=== PATIENT | female | born 1950 | race Caucasian/White ===

== ENCOUNTER 2021-10-26 13:42 | Inpatient (IN) | payer MEDICARE ==
[~2021-10-26] VITALS: Ht 149.9 cm; Wt 44.5 kg
[2021-10-26 15:02] LABS: BASOPHIL 0.2 % (0-2); EOSINOPHIL 0 % (0-7); HCT 39.1 % (37.0-47.0); HGB 13.6 g/dl (12.5-16.0); LYMPHOCYTE 21.1 % (15-48); MCH 30.8 pg (25.0-31.0); MCHC 34.8 g/dL (32.0-36.0); MCV 88.7 fL (78.0-100.0); MONOCYTE 15.6 % (0-12); MPV 9.8 fL (6.0-9.5); NEUTROPHIL 62.5 % (41-80); NRBC 0; PLT 284 K/uL (150-400); RBC 4.41 M/uL (4.20-5.40); RDW 12.2 % (11.5-14.0); WBC 6.5 K/uL (4.0-10.5)
[2021-10-26 15:24] LABS: PROTHROMBIN TIME 12.6 SECONDS (11.8-13.4); PTT 24.9 SECONDS (24.4-34.7)
[2021-10-26 15:31] LABS: IRON % SATURATION 31.8 %SAT (20-50)
[2021-10-26 15:52] LABS: INFLUENZA A NAA NEGATIVE (NEGATIVE)
[2021-10-26 15:54] LABS: ALBUMIN 3.4 g/dL (3.4-5.0); ALKALINE PHOSHATASE 88 U/L (46-116); ALT 25 U/L (14-59); AST 33 U/L (15-37); BILIRUBIN - TOTAL 0.3 mg/dL (0.2-1.0); BUN 10 mg/dL (7-18); BUN/CREAT RATIO (CALC) 16.1 RATIO; CHLORIDE 91 mmol/L (98-107); CO2 (BICARBONATE) 22 mmol/L (21-32); CREATININE 0.62 mg/dL (0.51-0.95); GLOBULIN (CALCULATION) 3.7 g/dL; GLUCOSE 169 mg/dL (74-106); LIPASE 79 U/L (73-393); MAGNESIUM 1.2 mg/dL (1.8-2.4); POTASSIUM 2.6 mmol/L (3.5-5.1); TOTAL PROTEIN 7.1 g/dL (6.4-8.2)
[2021-10-26 16:04] LABS: CORONAVIRUS 2019 SARS-COV-2 POSITIVE (NEGATIVE)
[2021-10-26 16:11] LABS: C-REACTIVE PROTEIN < 0.20 mg/dL (<=0.90)
[2021-10-26 16:12] LABS: LACTIC ACID 3.2 mmol/L (0.4-1.9)
[2021-10-26 21:56] LABS: BUN/CREAT RATIO (CALC) 17.5 RATIO; CREATININE 0.63 mg/dL (0.51-0.95); PHOSPHORUS 2.7 mg/dL (2.6-4.7); POTASSIUM 3.1 mmol/L (3.5-5.1)
[2021-10-27] MEDS ORDERED: EUTHYROX88 MCG PO (00:06)
[2021-10-27 06:06] LABS: BASOPHIL 0.1 % (0-2); EOSINOPHIL 0 % (0-7); HCT 36.7 % (37.0-47.0); HGB 12.4 g/dl (12.5-16.0); LYMPHOCYTE 31.5 % (15-48); MCH 30.2 pg (25.0-31.0); MCHC 33.8 g/dL (32.0-36.0); MCV 89.3 fL (78.0-100.0); MONOCYTE 15.9 % (0-12); MPV 9.8 fL (6.0-9.5); NEUTROPHIL 51.6 % (41-80); NRBC 0; PLT 274 K/uL (150-400); RBC 4.11 M/uL (4.20-5.40); RDW 12.3 % (11.5-14.0); WBC 8.6 K/uL (4.0-10.5)
[2021-10-27 06:19] LABS: BILIRUBIN NEGATIVE (NEGATIVE); BLOOD 1+ Ery/uL (NEGATIVE); CLARITY CLEAR (CLEAR); COLOR YELLOW (YELLOW); GLUCOSE (U) NORMAL (NORMAL); LEUKOCYTES NEGATIVE Leu/uL (NEGATIVE); NITRITE NEGATIVE (NEGATIVE); PROTEIN 2+ mg/dL (NEGATIVE); UROBILINOGEN 0.2 mg/dL (0.2-1.0)
[2021-10-27 06:36] LABS: BACTERIA TRACE
[2021-10-27 06:46] LABS: ALBUMIN 3.2 g/dL (3.4-5.0); BILIRUBIN - TOTAL 0.2 mg/dL (0.2-1.0); BUN/CREAT RATIO (CALC) 16.9 RATIO; CREATININE 0.65 mg/dL (0.51-0.95); GLOBULIN (CALCULATION) 2.4 g/dL; POTASSIUM 3.1 mmol/L (3.5-5.1); TOTAL PROTEIN 5.6 g/dL (6.4-8.2)
[2021-10-27 06:48] LABS: MAGNESIUM 2.3 mg/dL (1.8-2.4)
--- NOTE | 2021-10-27 07:14 | NUR ---
PT'S TELEMON DID NOT RECORD THE HOURLY VITALS. PT'S VITALS WERE RECORDED Q2HR'S WHILE ON CARDIZEM DRIP.
--- NOTE | 2021-10-27 15:49 | NUR ---
10/27 Ms. Becerril lives alone. She has a brother and sister who check in with her daily. Ms. Becerril reports to be independent in the home and community. She is able to meet her financial obligations. Yet, she is concerned about paying the hospital bill. Ms. Becerril was educated to the Respiratory Care Program Director.
[2021-10-28 06:25] LABS: BASOPHIL 0.1 % (0-2); EOSINOPHIL 0 % (0-7); HCT 37.3 % (37.0-47.0); HGB 12.6 g/dl (12.5-16.0); LYMPHOCYTE 23.7 % (15-48); MCH 30.2 pg (25.0-31.0); MCHC 33.8 g/dL (32.0-36.0); MCV 89.4 fL (78.0-100.0); MONOCYTE 8.4 % (0-12); MPV 9.9 fL (6.0-9.5); NEUTROPHIL 67.4 % (41-80); NRBC 0; PLT 245 K/uL (150-400); RBC 4.17 M/uL (4.20-5.40); RDW 12.2 % (11.5-14.0); WBC 6.9 K/uL (4.0-10.5)
[2021-10-28 08:05] LABS: BUN/CREAT RATIO (CALC) 27.9 RATIO; CREATININE 0.61 mg/dL (0.51-0.95); MAGNESIUM 1.8 mg/dL (1.8-2.4); POTASSIUM 3.3 mmol/L (3.5-5.1)
[2021-10-29 06:37] LABS: HCT 39.3 % (37.0-47.0); HGB 13.5 g/dl (12.5-16.0); MCH 30.5 pg (25.0-31.0); MCHC 34.4 g/dL (32.0-36.0); MCV 88.7 fL (78.0-100.0); MPV 9.7 fL (6.0-9.5); RBC 4.43 M/uL (4.20-5.40); RDW 12.1 % (11.5-14.0)
[2021-10-29 06:38] LABS: WBC 13.7 K/uL (4.0-10.5)
[2021-10-29 06:56] LABS: BUN/CREAT RATIO (CALC) 25.8 RATIO; CREATININE 0.62 mg/dL (0.51-0.95); MAGNESIUM 1.7 mg/dL (1.8-2.4); POTASSIUM 2.9 mmol/L (3.5-5.1)
[2021-10-30 06:33] LABS: BASOPHIL 0.4 % (0-2); EOSINOPHIL 0.1 % (0-7); HCT 45.9 % (37.0-47.0); HGB 15.6 g/dl (12.5-16.0); LYMPHOCYTE 26.4 % (15-48); MCH 30.2 pg (25.0-31.0); MONOCYTE 11.2 % (0-12); MPV 9.8 fL (6.0-9.5); NEUTROPHIL 60.5 % (41-80); NRBC 0; PLT 378 K/uL (150-400); RBC 5.16 M/uL (4.20-5.40); WBC 16.9 K/uL (4.0-10.5)
[2021-10-30 06:54] LABS: BUN/CREAT RATIO (CALC) 27.5 RATIO; CREATININE 0.8 mg/dL (0.51-0.95); MAGNESIUM 2.1 mg/dL (1.8-2.4)
[2021-10-30] MEDS ORDERED: ELIQUIS5 MG PO (09:33)
[2021-10-30] MEDS ORDERED: LOPRESSOR50 MG PO (09:33)
[2021-10-30] MEDS ORDERED: DIGITEK125 MCG PO (09:33)
[2021-10-30] MEDS ORDERED: ONDANSETRON ODT4 MG PO (12:30)
--- NOTE | 2021-10-30 13:11 | NUR ---
PATIENT DISCHARGED VIA WHEELCHAIR. MONITOR AND IV DCD. DISCHARGE INSTRUCTIONS EXPLAINED TO PATIENT AND FRIEND (PATIENT IS VERY HARD OF HEARING). FRIEND VERBALIZED UNDERSTANDING. ENCOURAGED TO GO TO PCP WITHIN THE NEXT WEEK FOR FOLLOWUP.
== END 2021-10-30 13:05 | disposition home or self-care (01) | DRG 178 ==
LOC: FER 13:42 → FTCU 20:57
PROVIDERS: Emergency Medicine; Nurse Practitioner; Nurse Practitioner Acute Care; ADMIT Family Medicine
PROC: XW033E5 Introduction of Remdesivir Anti-infective into Peripheral Vein, Percutaneous Approach, New Technology Group 5 (ICD-10-PCS; principal; 2021-10-26)
PROC: 8E0ZXY6 Isolation (ICD-10-PCS; 2021-10-26)
PROC: 3E0DX3Z Introduction of Anti-inflammatory into Mouth and Pharynx, External Approach (ICD-10-PCS; 2021-10-27)
DX: U07.1 COVID-19 (principal); E87.1 Hypo-osmolality and hyponatremia; E87.2 Acidosis; I48.91 Unspecified atrial fibrillation; E03.9 Hypothyroidism, unspecified; E87.6 Hypokalemia; E83.42 Hypomagnesemia; K52.9 Noninfective gastroenteritis and colitis, unspecified; F41.9 Anxiety disorder, unspecified; I11.0 Hypertensive heart disease with heart failure; I50.9 Heart failure, unspecified; Z28.310 Unvaccinated for COVID-19; Z79.899 Other long term (current) drug therapy
CPT/HCPCS: 36415; 71045; 80048; 80053; 80162; 81001; 82728; 82962; 83540; 83550; 83605; 83615; 83690; 83735; 83880; 84100; 84145; 84439; 84443; 84484; 85025; 85610; 85730; 86140; 93005; 94010; 94760; 97116; 97162; 97165; 97535; C9399; G0480; J1160; J1650; J1940; J2405; J3475; J7050; J8540; Q9967; U0002